=== PATIENT | male | born 1965 | race Caucasian/White ===

== ENCOUNTER 2018-09-01 07:54 | Day surgery (SDC) | payer OTHER ==
[~2018-09-01 07:54] MED LIST: CEFAZOLIN 2 GM/50 ML (PMX) 50 ML IVPB; DEXAMETHASONE 4 MG/ML 5 ML INJ; SOD CHLORIDE 0.9% 1,000 ML IV
[2018-09-01] MEDS: POLYMYXIN/BACITRACIN 1L IRRIG (08:30)
[2018-09-01] MEDS: BUPIVACAINE 0.25% (MPF) 30 ML INJ (08:30)
[2018-09-01] MEDS ORDERED: PROPOFOL 20 ML (09:16)
[2018-09-01] MEDS ORDERED: NEOSTIGMINE 3 MG/3 ML SYRINGE (09:16)
[2018-09-01] MEDS ORDERED: ROCURONIUM 50 MG INJ (09:16)
[2018-09-01] MEDS ORDERED: GLYCOPYRROLATE 0.4 MG INJ (09:16)
[2018-09-01] MEDS ORDERED: CEFAZOLIN 1 GM INJ (09:16)
[2018-09-01] MEDS ORDERED: FENTAnyl 50 MCG/ML VIAL (09:17)
[2018-09-01] MEDS ORDERED: ONDANSETRON 4 MG INJ (09:17)
[2018-09-01] MEDS ORDERED: ROPIVACAINE 0.5 % 30 ML VIAL (09:17)
[2018-09-01] MEDS ORDERED: MIDAZOLAM 1 MG/ML 2 ML INJ (09:17)
[2018-09-01] MEDS ORDERED: TRIMETHOBENZAMIDE 100 MG/ML VIAL IM (09:30)
[2018-09-01] MEDS ORDERED: LABETALOL HCL 20MG INJ IV (09:30)
[2018-09-01] MEDS ORDERED: DIPHENHYDRAMINE 50 MG INJ IV (09:30)
[2018-09-01] MEDS ORDERED: MIDAZOLAM 1 MG/ML 2 ML INJ IV (09:30)
[2018-09-01] MEDS ORDERED: OXYCODONE/ACETAMINOPHEN (5/325) TAB PO ×2 (09:30)
[2018-09-01] MEDS ORDERED: FENTAnyl 50 MCG/ML VIAL IV ×2 (09:30)
[2018-09-01] MEDS ORDERED: IPRATROPIUM (NEB) 0.5 MG/2.5 ML AMP HHN (09:30)
[2018-09-01] MEDS ORDERED: EPHEDrine SULFATE 50 MG/5 ML SYG IV (09:30)
[2018-09-01] MEDS ORDERED: MEPERIDINE 25 MG INJ IV (09:30)
[2018-09-01] MEDS ORDERED: HYDROmorphONE 1 MG/5 ML IV SYRINGE IV ×3 (09:30)
[2018-09-01] MEDS ORDERED: ONDANSETRON 4 MG INJ IV (09:30)
[2018-09-01] MEDS ORDERED: hydrALAzine 20 MG INJ IV (09:30)
[2018-09-01] MEDS ORDERED: ALBUTEROL 0.083% (NEB) 2.5 MG/3 ML AMP HHN (09:30)
[2018-09-01] MEDS ORDERED: SUGAMMADEX SODIUM 200 MG/2 ML VIAL IV (10:14)
[2018-09-01] MEDS ORDERED: HYDROCODONE/APAP (5/325) TAB PO (10:30)
[2018-09-01] MEDS: FENTAnyl 50 MCG/ML VIAL IV ×3 (10:39→10:51)
== END 2018-09-01 13:00 | disposition home or self-care (01) ==
LOC: SDS 07:54
DX: K40.90 Unilateral inguinal hernia, without obstruction or gangrene, not specified as recurrent (principal); I10 Essential (primary) hypertension; E78.5 Hyperlipidemia, unspecified
CPT/HCPCS: 49505; 90686